=== PATIENT | male | born 1965 | race Caucasian/White ===

== ENCOUNTER 2022-08-23 08:07 | Outpatient (CLI) | payer BC, SELFPAY ==
--- NOTE | 2022-09-14 11:50 | WPDHOMESLEEP ---
Sleep Study - Home Unattended Date of Study: 08/23/22 Ordering Provider: Hayden Reynoso MD Interpreting Provider: Orly Delgado, DO Home Sleep Study Type: Apnea Link Air Height: 1.85 m Weight: 104.326 kg Body Mass Index: 30.3 Neck Circumference (inches): 16.25 [place]: 1 Reason for Sleep Study Snoring Sleep History The patient is a 56-year-old male with dermatitis, hypertension and use of chewing tobacco that had a sleep study ordered by his primary care for evaluation of sleep apnea. The patient denies awakening from sleep short of breath. He rarely awakens at night with heartburn, belching or cough. He occasionally snores and is occasionally loud enough that others complain. He denies having trouble sleeping when he has a cold. He denies waking up gasping for air throughout the night. He denies having breathing problems at night observed by himself or others. He denies sweating excessively at night. He denies having heart palpitations or irregular heartbeats during the night. He denies falling asleep during the day and while driving. He denies sleep paralysis, cataplexy and hypnagogic / hypnopompic hallucinations. He denies having trouble at school or work due to sleepiness. He denies feeling afraid of going to sleep. He rarely has nightmares. He frequently remembers his dreams. He rarely has thoughts racing through his mind. He denies feeling sad or depressed. He denies having anxiety. He denies having muscular tension. He rarely notices parts of his body jerk. He denies kicking during the night. He denies having crawling and aching feelings in his legs as well as leg pain during the night. He denies grinding his teeth during sleep and awakening with morning jaw pain. He is occasionally bothered by pain during the day and occasionally awakened by pain during the night. He rarely wakes up feeling stiff in the morning. He rarely wakes up with sore or achy muscles. He denies waking up with pain in the neck, spine and other joints. He goes to bed between 9-10 p.m. on weekdays and between 10:00 p.m. to midnight on the weekends. He is able to fall asleep shortly. He wakes up 1-2 times throughout the night to urinate. He wakes up between 6-630 a.m. on weekdays and between 7-8 a.m. on the weekends. He typically gets 8-9 hours of sleep per night. He does not stay in bed long after waking up in the morning. He currently lives with his and 3 children. He does not consume any caffeinated beverages within 2 hours of bedtime. He does not engage in physical exercise before bedtime. He will watch television before falling asleep. He denies taking naps in the afternoon or the evening. He drinks 2-3 caffeinated beverages per day. He drinks up to 2 alcoholic beverages per day. He denies tobacco and recreational drug use. [facility] Past Medical History Medical History Psoriasiform dermatitis Surgical History Surgical History H/O arthroscopy of right knee H/O vasectomy Family History Family History Father Hypertension Family history of elevated blood lipids Mother Hypertension Family history of elevated blood lipids Grandparent Carcinoma of colon Social History Social History Smoking status: Never smoker Smokeless tobacco user: chewing tobacco Alcohol intake: current Alcohol use details: on occasion Substance use: never Substance use type: does not use Lack of Transportation: No Lack of Food: Never True Current Housing: I Have Housing Concerned About Future Housing: No Difficulty Paying Gas/Electric Bills: No Difficulty Paying for Meds: No Currently Unemployed: No Education: Bachelor's Degree Difficulty w/ Childcare or Family Care: No Living
[2022-09-14 11:52] VITALS: BMI 30.3
== END 2022-08-26 12:53 | disposition home or self-care (01) ==
LOC: ANHCSM 08:11
PROVIDERS: PCP Family Medicine; Visit Provider Family Medicine
DX: G47.30 Sleep apnea, unspecified (principal)
CPT/HCPCS: 95806

== ENCOUNTER 2023-04-04 01:28 | Day surgery (SDC) | payer BC, SELFPAY ==
[2023-03-24 10:52] VITALS: BMI 29.8
--- NOTE | 2023-04-02 09:24 | PM.HPGS ---
History of Present Illness History of Present Illness Consent: Risks, benefits, and alternatives have been discussed and questions answered. Patient agrees to proceed with procedure. Chief complaint: neoplasm screening Narrative: Yamil Lopez is a 57 year old male who is referred for colon cancer screening. Review of Systems Review of Systems: All systems reviewed & are unremarkable except as noted in HPI and below PMFSH Past Medical History Medical History Psoriasiform dermatitis Surgical History Surgical History H/O arthroscopy of right knee H/O vasectomy Family History Family History Father Hypertension Family history of elevated blood lipids Mother Hypertension Family history of elevated blood lipids Grandparent Carcinoma of colon Social History Social History Smoking status: Never smoker Smokeless tobacco user: chewing tobacco Alcohol intake: current Drinks per week: 3 Alcohol use details: on occasion Substance use: never Substance use type: does not use Lack of Transportation: No Lack of Food: Never True Current Housing: I Have Housing Concerned About Future Housing: No Difficulty Paying Gas/Electric Bills: No Difficulty Paying for Meds: No Currently Unemployed: No Education: Bachelor's Degree Difficulty w/ Childcare or Family Care: No Living arrangements: with family Spiritual care concerns: No Meds Home Medications and Allergies Home Medications Medication Instructions Recorded Confirmed Type tadalafil 5 mg tablet (Cialis) 5 mg PO DAILY PRN sexual activity 02/11/22 03/24/23 Rx #30 tabs bupropion HCl 150 mg 24 hr tablet, 150 mg PO QAM #90 tabs 08/11/22 03/24/23 Rx extended release (Wellbutrin XL) lisinopril 10 1 tablet PO DAILY #90 tabs 08/11/22 03/24/23 Rx mg-hydrochlorothiazide 12.5 mg tablet AutoPAP #1 ea 12/22/22 01/13/23 Rx Nocturnal Oximetry #1 ea 01/27/23 01/27/23 Rx Allergies Allergy/AdvReac Type Severity Reaction Status Date / Time Penicillins Allergy Unknown Dyspnea / Verified 04/04/23 08:29 SOB Exam Resp: Auscultation: clear to auscultation bilaterally Cardio: Rate: regular rate Rhythm: regular rhythm GI: GI Palp: Yes Soft to palpation and No Tenderness to palpation present (GI) Assessment and Plan Assessment and plan (1) Colon cancer screening: Code(s): Z12.11 - Encounter for screening for malignant neoplasm of colon Status: Acute Assessment and Plan: Colonoscopy with possible biopsy or polypectomy or cautery or injection of substances.
[2023-04-04 08:29] VITALS: BP 125/78; PULSE 51; RESP 18; TEMP 36.3; O2SAT 99
[2023-04-04] MEDS: LACTATED RINGERS 1,000 ML 150 ML IV CONT (08:40)
--- NOTE | 2023-04-04 08:59 | WPDANESEPPF ---
Anes - Initial Pre Proc Eval Procedure: Operation Date: 04/04/23 10:00 Proposed Procedures p Screening Colonoscopy - Michael Barragan MD Date/Time: 04/04/23 08:59 Surgeon: Michael Barragan MD Pre Op Diagnosis: neoplasm screening Patient Data Age: 57 Gender: M Height: 1.85 m Weight: 102.3 kg Last Vital Signs Temp 97.3 F L 04/04/23 08:29 Pulse 51 L 04/04/23 08:29 Resp 18 04/04/23 08:29 BP 125/78 04/04/23 08:29 Pulse Ox 99 04/04/23 08:29 O2 Del Method Room Air 04/04/23 08:29 Allergies Allergy/AdvReac Type Severity Reaction Status Date / Time Penicillins Allergy Unknown Dyspnea / Verified 04/04/23 08:29 SOB Home Medications Medication Instructions Recorded Confirmed Type tadalafil 5 mg tablet (Cialis) 5 mg PO DAILY PRN sexual activity 02/11/22 03/24/23 Rx #30 tabs bupropion HCl 150 mg 24 hr tablet, 150 mg PO QAM #90 tabs 08/11/22 03/24/23 Rx extended release (Wellbutrin XL) lisinopril 10 1 tablet PO DAILY #90 tabs 08/11/22 03/24/23 Rx mg-hydrochlorothiazide 12.5 mg tablet AutoPAP #1 ea 12/22/22 01/13/23 Rx Nocturnal Oximetry #1 ea 01/27/23 01/27/23 Rx Patient hx anesthesia problems: none Family hx anesthesia problems: none Results Review: All pre-operative results and documents have been reviewed as part of the pre-operative evaluation. [facility] Past Medical History Medical History Psoriasiform dermatitis Surgical History Surgical History H/O arthroscopy of right knee H/O vasectomy Family History Family History Father Hypertension Family history of elevated blood lipids Mother Hypertension Family history of elevated blood lipids Grandparent Carcinoma of colon Social History Social History Smoking status: Never smoker Smokeless tobacco user: chewing tobacco Alcohol intake: current Drinks per week: 3 Alcohol use details: on occasion Substance use: never Substance use type: does not use Lack of Transportation: No Lack of Food: Never True Current Housing: I Have Housing Concerned About Future Housing: No Difficulty Paying Gas/Electric Bills: No Difficulty Paying for Meds: No Currently Unemployed: No Education: Bachelor's Degree Difficulty w/ Childcare or Family Care: No Living arrangements: with family Spiritual care concerns: No Anes - Eval Final PreProcedure Day of Procedure 04/04/23 08:59 Patient weight: obese Heart: regular rate and rhythm Lungs: clear to auscultation Airway: Mallampati scale class II Neurological: alert and oriented Last oral intake: >/= 8 hours ASA classification: III Emergent: no Anesthetic plan: proceed Anesthesia type and monitoring: general GIVS and standard monitoring Results Review: All pre-operative results and documents have been reviewed as part of the pre-operative evaluation. Informed Consent: The patient's anesthetic plan and its attendant risks and benefits were discussed with the patient/family/POA. Questions were solicited and answers provided to the satisfaction of the patient/family/POA.
[2023-04-04 09:45] VITALS: BP 102/66; PULSE 52; RESP 17; O2SAT 99
[2023-04-04 09:55] VITALS: BP 122/87; PULSE 48; RESP 18; O2SAT 99
[2023-04-04 10:05] VITALS: BP 126/88; PULSE 48; RESP 18; O2SAT 99
== END 2023-04-04 10:14 | disposition home or self-care (01) ==
PROVIDERS: PCP Family Medicine; Visit Provider Internal Medicine Gastroenterology
PROC: 0DJD8ZZ Inspection of Lower Intestinal Tract, Via Natural or Artificial Opening Endoscopic (ICD-10-PCS; CPT 45378; principal; 2023-04-04 10:00)
DX: Z12.11 Encounter for screening for malignant neoplasm of colon (principal); K64.8 Other hemorrhoids; K57.30 Diverticulosis of large intestine without perforation or abscess without bleeding; F17.220 Nicotine dependence, chewing tobacco, uncomplicated; E66.9 Obesity, unspecified; Z68.29 Body mass index [BMI] 29.0-29.9, adult
CPT/HCPCS: 45378; J2001; J2704; J7120

== ENCOUNTER 2023-07-01 13:36 | Outpatient (CLI) | payer BC, SELFPAY ==
--- NOTE | ~2023-07-01 | XR_ITS ---
XR chest 2V DATE: 07/01/2023 14:39 INDICATION: Obstructive sleep apnea TECHNIQUE: PA and lateral views COMPARISON: 06/21/2019 2 view chest FINDINGS: Normal heart size. Mild aortic unfolding. No hilar or mediastinal enlargement. No pulmonary infiltrate or consolidation, pleural effusion or pulmonary vascular congestion or pneumo thorax is detected. IMPRESSION: No active cardiopulmonary disease Reviewed, dictated and finalized at location B. [facility]
--- NOTE | 2023-07-01 15:03 | WPDPFTINT ---
PFT Procedure Performed PFT Procedure Performed Spirometry with Pre/Post Bronchodilator Plethysmography (Lung Vol) Diffusing Cap (DLCO) Flow Vol Loop PFT Interpretation Lung volumes were measured with the body plethysmography method. Lung volumes are unremarkable. Spirometry showed normal expiratory flow rates and a normal FEV1/FVC ratio of 73%. Following administration of a bronchodilator there was no significant increase in the expiratory flow rates. Lung diffusion capacity in within the normal range. The flow-volume loop is unremarkable. Impression: Spirometry, lung volumes, and lung diffusion capacity all within the normal range.
== END 2023-07-01 13:37 | disposition home or self-care (01) ==
LOC: ANHPFT 13:38
PROVIDERS: PCP Family Medicine; Visit Provider Physician Assistant
DX: G47.33 Obstructive sleep apnea (adult) (pediatric) (principal); R09.02 Hypoxemia
CPT/HCPCS: 71046; 94060; 94726; 94729

== ENCOUNTER 2023-08-11 08:45 | Outpatient (CLI) | payer BC, SELFPAY ==
--- NOTE | 2023-08-30 16:48 | WPDSLEEPSTUD ---
Sleep Study Date of Study: 08/11/23 Ordering Provider: Orly Delgado DO Interpreting Physician: Orly Delgado DO Sleep Study Type: CPAP Titration Height: 1.85 m Weight: 103.873 kg Body Mass Index: 30.2 Neck Circumference (inches): 16.25 [place]: 3 Reason for Sleep Study The patient had an Apnea Link home sleep test on 08/23/2022 that showed an overall AHI of 26 with desaturation down to 68%. His insurance company required failure of AutoPAP prior to covering a PAP Titration study. He had a nocturnal oximetry done 2 weeks after being on PAP therapy and it showed an LOUIS of 18 and he spent 3 min 14 sec with SpO2<88%. Basal SpO2 of 93% and SpO2 min of 83%. Sleep History The patient is a 57-year-old male with dermatitis, hypertension and use of chewing tobacco that had a sleep study ordered by his primary care for evaluation of sleep apnea.? The patient denies awakening from sleep short of breath.? He rarely awakens at night with heartburn, belching or cough.? He occasionally snores and is occasionally loud enough that others complain.? He denies having trouble sleeping when he has a cold.? He denies waking up gasping for air throughout the night.? He denies having breathing problems at night observed by himself or others.? He denies sweating excessively at night.? He denies having heart palpitations or irregular heartbeats during the night.? He denies falling asleep during the day and while driving.? He denies sleep paralysis, cataplexy and hypnagogic / hypnopompic hallucinations.? He denies having trouble at school or work due to sleepiness.? He denies feeling afraid of going to sleep.? He rarely has nightmares.? He frequently remembers his dreams.? He rarely has thoughts racing through his mind.? He denies feeling sad or depressed.? He denies having anxiety.? He denies having muscular tension.? He rarely notices parts of his body jerk.? He denies kicking during the night.? He denies having crawling and aching feelings in his legs as well as leg pain during the night.? He denies grinding his teeth during sleep and awakening with morning jaw pain.? He is occasionally bothered by pain during the day and occasionally awakened by pain during the night.? He rarely wakes up feeling stiff in the morning.? He rarely wakes up with sore or achy muscles.? He denies waking up with pain in the neck, spine and other joints.? He goes to bed between 9-10 p.m. on weekdays and between 10:00 p.m. to midnight on the weekends.? He is able to fall asleep shortly.? He wakes up 1-2 times throughout the night to urinate.? He wakes up between 6-630 a.m. on weekdays and between 7-8 a.m. on the weekends.? He typically gets 8-9 hours of sleep per night.? He does not stay in bed long after waking up in the morning.? He currently lives with his and 3 children.? He does not consume any caffeinated beverages within 2 hours of bedtime.? He does not engage in physical exercise before bedtime.? He will watch television before falling asleep.? He denies taking naps in the afternoon or the evening. He drinks 2-3 caffeinated beverages per day.? He drinks up to 2 alcoholic beverages per day.? He denies tobacco and recreational drug use. [facility] Past Medical History Medical History Psoriasiform dermatitis Surgical History Surgical History H/O arthroscopy of right knee H/O vasectomy Family History Family History Father Hypertension Family history of elevated blood lipids Mother Hypertension Family history of elevated blood lipids Grandparent Carcinoma of colon Social History Social History Smoking status: Never smoker Smokeless tobacco user: chewing tobacco Alcohol intake: current Drinks per week: 3 Alcohol use details: on occasion
[2023-08-30 16:55] VITALS: BMI 30.2
== END 2023-08-12 07:31 | disposition home or self-care (01) ==
LOC: ANHCSM 08:46
PROVIDERS: PCP Family Medicine; Visit Provider Family Medicine
DX: G47.33 Obstructive sleep apnea (adult) (pediatric) (principal)
CPT/HCPCS: 95811

== ENCOUNTER 2024-04-12 01:28 | Day surgery (SDC) | payer BC, SELFPAY ==
[2024-03-22 13:45] VITALS: BMI 31.4
[2024-04-12] MEDS: LACTATED RINGERS 1,000 ML 150 ML IV CONT (07:56)
[2024-04-12 07:59] VITALS: BP 160/97; PULSE 60; RESP 18; TEMP 36.2; O2SAT 98; BMI 31.7
--- NOTE | 2024-04-12 08:03 | WPDANESEPPF ---
Anes - Initial Pre Proc Eval Procedure: Operation Date: 04/12/24 09:00 Proposed Procedures p Esophagogastroduodenoscopy - George Peraza MD Date/Time: 04/12/24 08:03 Surgeon: George Peraza MD Pre Op Diagnosis: esophageal obstruction Patient Data Age: 58 Gender: M Height: 1.85 m Weight: 109.2 kg Last Vital Signs Temp 36.2 C L 04/12/24 07:59 Pulse 60 04/12/24 07:59 Resp 18 04/12/24 07:59 BP 160/97 H 04/12/24 07:59 Pulse Ox 98 04/12/24 07:59 O2 Del Method Room Air 04/12/24 07:59 Allergies Allergy/AdvReac Type Severity Reaction Status Date / Time Penicillins Allergy Unknown Dyspnea / Verified 04/12/24 07:58 SOB Home Medications Medication Instructions Recorded Confirmed Type Nocturnal Oximetry #1 ea 01/27/23 01/25/24 Rx tadalafil 5 mg tablet (Cialis) 5 mg PO DAILY PRN sexual activity 06/15/23 03/22/24 Rx #30 tabs CPAP Pressure Change #1 ea 08/30/23 01/25/24 Rx lisinopril 10 1 tablet PO DAILY #90 tabs 01/02/24 03/22/24 Rx mg-hydrochlorothiazide 12.5 mg tablet aspirin 81 mg tablet,delayed 81 mg PO DAILY 01/25/24 03/22/24 History release (Adult Aspirin Regimen) cetirizine 10 mg capsule (Zyrtec) 10 mg PO DAILY PRN Allergy Symptoms 01/25/24 03/22/24 History famotidine 10 mg tablet 10 mg PO DAILY 01/25/24 03/22/24 History glucosamine sulfate 500 mg tablet 500 mg PO DAILY 01/25/24 03/22/24 History (Glucosamine) bupropion HCl 300 mg 24 hr tablet, 300 mg PO QAM #90 tabs 03/29/24 Rx extended release (Wellbutrin XL) Patient hx anesthesia problems: none Family hx anesthesia problems: none Results Review: All pre-operative results and documents have been reviewed as part of the pre-operative evaluation. [facility] Past Medical History Medical History (Updated 04/12/24 @ 08:03 by Yuniel Akers MD) Basal cell carcinoma (BCC) Essential (primary) hypertension JOSE (obstructive sleep apnea) Psoriasiform dermatitis Surgical History Surgical History H/O arthroscopy of right knee H/O vasectomy Family History Family History Father Hypertension Family history of elevated blood lipids Malignant neoplasm of prostate Mother Hypertension Family history of elevated blood lipids Grandparent Carcinoma of colon Social History Social History Smoking status: Never smoker Smokeless tobacco user: chewing tobacco Additional smoking assessment comments: hx of chewing tobacco (not currently) Alcohol intake: current Drinks per week: 3 Alcohol use details: on occasion Substance use: never Substance use type: does not use Lack of Transportation: No Lack of Food: Never True Current Housing: I Have Housing Concerned About Future Housing: No Difficulty Paying Gas/Electric Bills: No Difficulty Paying for Meds: No Currently Unemployed: No Education: Bachelor's Degree Difficulty w/ Childcare or Family Care: No Living arrangements: with family Spiritual care concerns: No Anes - Eval Final PreProcedure Day of Procedure 04/12/24 08:03 Patient weight: obese Heart: regular rate and rhythm Lungs: clear to auscultation Airway: Mallampati scale class II Neurological: alert and oriented Last oral intake: >/= 8 hours ASA classification: III Emergent: no Anesthetic plan: proceed Anesthesia type and monitoring: general GIVS and standard monitoring Results Review: All pre-operative results and documents have been reviewed as part of the pre-operative evaluation. Informed Consent: The patient's anesthetic plan and its attendant risks and benefits were discussed with the patient/family/POA. Questions were solicited and answers provided to the satisfaction of the patient/family/POA.
--- NOTE | 2024-04-12 08:59 | PM.HPGS ---
History of Present Illness History of Present Illness Consent: Risks, benefits, and alternatives have been discussed and questions answered. Patient agrees to proceed with procedure. Chief complaint: esophageal obstruction Narrative: Yamil Lopez is a 58 year old male here for first egd, gerd on famotidine, also sensation of gas in upper abdomen that can not get out Review of Systems Review of Systems: All systems reviewed & are unremarkable except as noted in HPI and below PMFSH Past Medical History Medical History (Updated 04/12/24 @ 09:03 by George Peraza MD) Basal cell carcinoma (BCC) Essential (primary) hypertension Gas bloat syndrome JOSE (obstructive sleep apnea) Psoriasiform dermatitis Surgical History Surgical History H/O arthroscopy of right knee H/O vasectomy Family History Family History Father Hypertension Family history of elevated blood lipids Malignant neoplasm of prostate Mother Hypertension Family history of elevated blood lipids Grandparent Carcinoma of colon Social History Social History Smoking status: Never smoker Smokeless tobacco user: chewing tobacco Additional smoking assessment comments: hx of chewing tobacco (not currently) Alcohol intake: current Drinks per week: 3 Alcohol use details: on occasion Substance use: never Substance use type: does not use Lack of Transportation: No Lack of Food: Never True Current Housing: I Have Housing Concerned About Future Housing: No Difficulty Paying Gas/Electric Bills: No Difficulty Paying for Meds: No Currently Unemployed: No Education: Bachelor's Degree Difficulty w/ Childcare or Family Care: No Living arrangements: with family Spiritual care concerns: No Meds Home Medications and Allergies Home Medications Medication Instructions Recorded Confirmed Type Nocturnal Oximetry #1 ea 01/27/23 01/25/24 Rx tadalafil 5 mg tablet (Cialis) 5 mg PO DAILY PRN sexual activity 06/15/23 03/22/24 Rx #30 tabs CPAP Pressure Change #1 ea 08/30/23 01/25/24 Rx lisinopril 10 1 tablet PO DAILY #90 tabs 01/02/24 03/22/24 Rx mg-hydrochlorothiazide 12.5 mg tablet aspirin 81 mg tablet,delayed 81 mg PO DAILY 01/25/24 03/22/24 History release (Adult Aspirin Regimen) cetirizine 10 mg capsule (Zyrtec) 10 mg PO DAILY PRN Allergy Symptoms 01/25/24 03/22/24 History famotidine 10 mg tablet 10 mg PO DAILY 01/25/24 03/22/24 History glucosamine sulfate 500 mg tablet 500 mg PO DAILY 01/25/24 03/22/24 History (Glucosamine) bupropion HCl 300 mg 24 hr tablet, 300 mg PO QAM #90 tabs 03/29/24 Rx extended release (Wellbutrin XL) Allergies Allergy/AdvReac Type Severity Reaction Status Date / Time Penicillins Allergy Unknown Dyspnea / Verified 04/12/24 07:58 SOB Vital Signs Vital Signs - 24 hr 04/12/24 07:59 Temperature 97.2 F L Pulse Rate 60 Respiratory Rate 18 Blood Pressure 160/97 H Pulse Oximetry 98 Oxygen Delivery Room Air Exam Const: General: comfortable and no acute distress HENMT: Face/Nose/Sinus: Normal nares present Eyes: General: appearance normal, both eyes and all related structures Neck: Neck: no JVD Resp: Auscultation: clear to auscultation bilaterally Cardio: Rate: regular rate Rhythm: regular rhythm GI: Inspection: non-distended GI Palp: Yes Soft to palpation Skin: General skin exam: normal color Neuro: General: gait normal Speech: normal speech Extrem: General: normal to inspection Psych: Mental Status: mental status grossly normal Assessment and Plan Assessment and plan (1) Gas bloat syndrome: Code(s): K92.89 - Other specified diseases of the digestive system Status: Acute Assessment and Plan: egd with bx
[2024-04-12 09:24] VITALS: BP 128/93; PULSE 67; RESP 22; O2SAT 97
[2024-04-12 09:34] VITALS: BP 131/91; PULSE 56; RESP 17; O2SAT 100
[2024-04-12 09:44] VITALS: BP 141/90; PULSE 52; RESP 17; O2SAT 100
== END 2024-04-12 09:54 | disposition home or self-care (01) ==
PROVIDERS: PCP Family Medicine; Referring Provider Family Medicine; Visit Provider Internal Medicine Gastroenterology
PROC: 0DJ08ZZ Inspection of Upper Intestinal Tract, Via Natural or Artificial Opening Endoscopic (ICD-10-PCS; CPT 43235; principal; 2024-04-12 09:00)
DX: K22.2 Esophageal obstruction (principal); K21.00 Gastro-esophageal reflux disease with esophagitis, without bleeding; K44.9 Diaphragmatic hernia without obstruction or gangrene; K92.89 Other specified diseases of the digestive system; I10 Essential (primary) hypertension; G47.33 Obstructive sleep apnea (adult) (pediatric); E66.9 Obesity, unspecified; Z68.31 Body mass index [BMI] 31.0-31.9, adult; Z79.82 Long term (current) use of aspirin; Z99.89 Dependence on other enabling machines and devices; Z98.890 Other specified postprocedural states; Z87.891 Personal history of nicotine dependence; Z85.828 Personal history of other malignant neoplasm of skin; Z80.42 Family history of malignant neoplasm of prostate; Z80.0 Family history of malignant neoplasm of digestive organs
CPT/HCPCS: 43239; 43249; 88305; C1726; J2003; J2704; J7120

== ENCOUNTER 2024-05-04 15:26 | Outpatient (CLI) | payer BC, SELFPAY ==
[2024-05-04 18:29] LABS: Alanine Aminotransferase 16 U/L (6-50); Albumin Level 4.4 g/dL (3.5-5.1); Alkaline Phosphatase 105 U/L (38-126); Anion Gap 6 mmol/L (4-12); Aspartate Amino Transferase 40 U/L (17-59); Bilirubin,Total 0.5 mg/dL (0.2-1.3); Blood Urea Nitrogen 11 mg/dL (9-20); Calcium 9.3 mg/dL (8.4-10.2); Carbon Dioxide 32 mmol/L (22-30); Chloride 99 mmol/L (98-107); Estimated Glomerular Filt Rate > 60; Glucose 87 mg/dL (65-110); Potassium 4.1 mmol/L (3.4-5.0); Sodium 137 mmol/L (137-145)
[2024-05-04 18:37] LABS: NT Pro B Type Natriuretic Pept 85 pg/mL (19.9-100)
== END 2024-05-04 15:27 | disposition home or self-care (01) ==
LOC: ANHGOSHLAB 15:28
PROVIDERS: PCP Family Medicine; Visit Provider Nurse Practitioner Family
DX: R60.9 Edema, unspecified (principal)
CPT/HCPCS: 36415; 80053; 83880

== ENCOUNTER 2024-06-11 07:45 | Outpatient (CLI) | payer BC, SELFPAY ==
--- NOTE | 2024-06-11 07:48 | ECHO_ITS ---
Patient Info Name: Yamil Lopez Age: 58 years : 1965 Gender: Male Ht: 73 in Wt: 235 lbs BSA: 2.37 m2 HR: 68 bpm BP: 158 / 102 mmHg Technical Quality: Good Exam Date: 06/11/2024 8:01 AM Exam Location: Echo Lab Patient Status: Outpatient Admit Date: 06/11/2024 Staff Ordering Physician: Dyan Beck Shactor: Smita Hernandez RDCS Attending Provider: Dyan Beck Referring Physician: Kiran SMITH; Exam Type: CA echo doppler color flow Study Info Indications R60.9 - Edema, unspecified Complete two-dimensional, color flow and Doppler transthoracic echocardiogram is performed. Strain analysis performed. Summary 1. Complete two-dimensional, color flow and Doppler transthoracic echocardiogram is performed. 2. Left ventricular chamber dimension is normal. 3. Left ventricular systolic function is normal, estimated at 65-70%. 4. The left ventricular diastolic function is grade I diastolic dysfunction. 5. E/e' 7 is not elevated. 6. Global longitudinal strain is normal at -20.0%. 7. Left atrial chamber dimension is moderately enlarged. 8. Right atrial chamber dimension is moderately enlarged. 9. There is mild aortic valve sclerosis. 10. Mild pulmonary hypertension, estimated pulmonary arterial systolic pressure is 43 mmHg. Left Ventricle E/e' 7 is not elevated. Global longitudinal strain is normal at -20.0%. Left ventricular chamber dimension is normal. Left ventricular systolic function is normal, estimated at 65-70%. The left ventricular diastolic function is grade I diastolic dysfunction. Right Ventricle Right ventricular chamber dimension is normal. Right ventricular systolic function is normal. Left Atria Left atrial chamber dimension is moderately enlarged. Right Atria Right atrial chamber dimension is moderately enlarged. Aortic Valve The aortic valve is trileaflet. There is mild aortic valve sclerosis. There is no aortic valve stenosis. There is no aortic valve regurgitation. Pulmonic Valve There is no pulmonic regurgitation. Mitral Valve There is no mitral valve stenosis. There is no mitral valve regurgitation. Tricuspid Valve There is no tricuspid valve regurgitation. Mild pulmonary hypertension, estimated pulmonary arterial systolic pressure is 43 mmHg. Pericardium/Pleural There is no pericardial effusion. Inferior Vena Cava Normal inferior vena cava with >50% collapse upon inspiration consistent with normal right atrial pressure, 5 mmHg. Aorta The aortic root size at the sinus of Valsalva is normal. Left Ventricular Outflow Tract Name Value Normal LVOT 2D LVOT Diameter 2.0 cm LVOT Doppler LVOT Peak Gradient 6 mmHg LVOT Mean Gradient 3 mmHg LVOT VTI 27 cm LVOT VTI/AV VTI Ratio 1.0 LVOT Stroke Volume 86 ml LVOT CO 5.6 l/min LVOT CI 2.4 l/min/m2 Pulmonic Valve Name Value Normal RVOT Doppler RVOT Peak Gradient 2 mmHg PV Doppler PV Peak Gradient 3 mmHg Mitral Valve Name Value Normal MV Doppler MV Decel Trimble 456 cm/s2 MV PHT 55 ms MV Area (PHT) 4.0 cm2 4.0-5.0 MV Diastolic Function MV E Peak Velocity 87 cm/s MV A Peak Velocity 103 cm/s MV E/A 0.8 MV Decel Time 191 ms Tricuspid Valve Name Value Normal TV Regurgitation Doppler TR Peak Velocity 310 cm/s TR Peak Gradient 38 mmHg Estimated PAP/RSVP RA Pressure 5 mmHg <=5 PA Systolic Pressure 43 mmHg <36 RV Systolic Pressure 43 mmHg <36 Aorta Name Value Normal Ascending Aorta Ao Root Diameter (MM) 4.0 cm Ao Root Diam Index (MM) 1.7 cm/m2 Aortic Valve Name Value Normal AV Doppler AV Peak Velocity 138 cm/s AV Peak Gradient 8 mmHg AV Mean Gradient 5 mmHg AV VTI 28 cm AV Area (Cont Eq VTI) 3.1 cm2 >=3.0 AV Area (Cont Eq Sonny) 2.9 cm2 AV Regurgitation 2D LVOT Area 3.2 cm2 Ventricles Name Value Normal LV Dimensions 2D/MM IVS Diastolic Thickness (2D) 0.9 cm 0.6-1.0 IVS Diastole Thickness (MM) 0.7 cm 0.6-1.0 LVID Diastole (2D) 4.6 cm 4.2-5.8 LVID Diastole (MM) 6.8 cm 4.2-5.8 LVIW Diastolic Thickness (2D) 0.8 cm 0.6-1.0 LVIW Diastolic Thickness (MM) 0.8 cm 0.6-1.0 LVID Systole (2D) 3.0 cm 2.5-4.0 LVID Systole (MM) 4.4 cm 2.5-4.0 LVOT Diameter 2.0 cm LV Mass (2D Cubed) 132.93 g 88.00-224.00 LV Mass Index (2D Cubed) 56 g/m2 49-115 Relative Wall Thickness (2D) 0.37 LV Mass (MM Cubed) 210.63 g 88.00-224.00 LV Mass Index (MM Cubed) 89 g/m2 49-115 Relative Wall Thickness (MM) 0.22 LV Fractional Shortening/Ejection Fraction 2D/MM LV Fractional Shortening (2D) 35 % 25-43 LV Fractional Shortening (MM) 35 % 25-43 LV EF (MM Teicholz) 63 % 52-72 LV EF (2D Teicholz) 64 % 52-72 LV Diastolic Volume (4C MOD) 147 ml LV EF (4C MOD) 63 % LV Diastolic Volume (2C MOD) 141 ml LV EF (2C MOD) 68 % LV Diastolic Volume (BP MOD) 144 ml 62-150 LV Diastolic Volume Index (BP MOD) 61 ml/m2 34-74 LV Systolic Volume (BP MOD) 51 ml 21-61 LV Systolic Volume Index (BP MOD) 21 ml/m2 11-31 LV EF (BP MOD) 65 % 52-72 LV Diastolic Length (4C) 9.1 cm LV Systolic Length (4C) 7.3 cm LV Stroke Volume (4C MOD) 92 ml Atria Name Value Normal LA Dimensions LA Dimension (MM) 4.3 cm 3.0-4.1 LA Volume (4C A-L) 84 ml LA Volume (BP A-L) 98 ml RA Dimensions RA Area (4C) 21.2 cm2 <=18.0 EchoPAC Name Value Normal AutoEF LVCO_BiP_Q (Relm2OXD) 6.3 l/min LVEF_BiP_Q (Trje5ZLA) 66 % LVSV_BiP_Q (Ajks0VES) 122 ml LVVED_BiP_Q (Haun7EYR) 185 ml LVVES_BiP_Q (Jmey3QKP) 62 ml HR_4Ch_Q (Lwjg1ZEG) 55 bpm LVCO_4Ch_Q (Xcyx2ZTE) 6.4 l/min LVEF_4Ch_Q (Ehgg9NTZ) 68 % LVLd_4Ch_Q (Qngr6CDR) 9.2 cm LVLs_4Ch_Q (Pfmw0UGV) 7.3 cm LVSV_4Ch_Q (Cesl4VPK) 116 ml LVVED_4Ch_Q (Umsb8ZNJ) 172 ml LVVES_4Ch_Q (Eujr4EEL) 56 ml HR_2Ch_Q (Sgxo9NQS) 49 bpm LVCO_2Ch_Q (Ehvc1ECV) 6.3 l/min LVEF_2Ch_Q (Kskh4RAG) 65 % LVLd_2Ch_Q (Xodm1DPL) 8.7 cm LVLs_2Ch_Q (Mjmr9GKI) 7.1 cm LVSV_2Ch_Q (Gntn3EPH) 128 ml LVVED_2Ch_Q (Gisc0PYL) 196 ml LVVES_2Ch_Q (Ydhf0EYX) 69 ml ANJEL AA peak sys SL (AWMA) 17.0 % AAS peak sys SL (AWMA) 29.3 % AI peak sys SL (AWMA) 22.0 % AL peak sys SL (AWMA) 27.8 % AP peak sys SL (AWMA) 28.3 % peak sys SL (AWMA) 28.6 % AVC (AWMA) 395 ms BA peak sys SL (AWMA) 18.7 % BAS peak sys SL (AWMA) 15.8 % BI peak sys SL (AWMA) 15.0 % BL peak sys SL (AWMA) 26.3 % BP peak sys SL (AWMA) 10.1 % BS peak sys SL (AWMA) 12.4 % G peak SL(A2C) (AWMA) 18.3 % G peak SL(A4C) (AWMA) 23.1 % G peak SL(APLAX) (AWMA) 18.7 % G peak SL(Avg) (AWMA) 20.1 % MA peak sys SL (AWMA) 13.0 % MAS peak sys SL (AWMA) 21.2 % HI peak sys SL (AWMA) 27.2 % ML peak sys SL (AWMA) 24.0 % MP peak sys SL (AWMA) 12.2 % MS peak sys SL (AWMA) 22.0 % Report Signatures
--- OUTSIDE RECORDS SUMMARY | 2024-06-16 21:49 | XMS_ITS | Clinical Summary ---
Author Organization [facility] Address [address] [place] [address]. [place], [place] [address] [place] [address] Care Team Providers Care Money Market Clerk Name Role Phone Unavailable Primary Care Provider Unavailabl e Social History Tobacco Use Types Packs/Day Years Used Date Smoking Tobacco: Never Sex and Gender Information Value Date Recorded Sex Assigned at Not on file Legal Sex Male 9:46 PM CDT Gender Identity Not on file Sexual Orientation Not on file Last Filed Vital Signs Vital Sign Reading Time Taken Comments Blood Pressure 112/70 01/27/2012 1:07 PM CDT Pulse 57 01/27/2012 1:06 PM CDT Temperature - - Respiratory Rate 16 01/27/2012 1:06 PM CDT Oxygen Saturation - - Inhaled Oxygen Concentration - - Weight 98.6 kg (217 lb 6.4 oz) 01/27/2012 1:06 P M CDT Height 185.4 cm (6' 1 ) 01/27/2012 1:06 PM CDT Body Mass Index 28.68 01/27/2012 1:06 PM CDT Plan of Treatment Health Maintenance Due Date Last Done Comments Colorectal Cancer Screening Colonoscopy (10 Years) 1965 Annual Physical 1969 Hepatitis C 1984 DTaP, Tdap and Td Vaccines ( 1 - Tdap) 1985 Hepatitis B Vaccines (1 of 3 - 19+ 3-dose series) 1985 Zoster Vaccines (1 of 2) 2016 COVID-19 Vaccine (2023-2 5 season) 2024 Influenza Adult (#1) 2024 Meningococcal Vaccine Aged Out No boom jolene eligible based on patient's age to complete this topic Pneumococcal Vaccine: Pediat rics (0 to 5 Years) and At-Risk Patients (6 to 64 Years) Aged Out No longer eligible b ased on patient's age to complete this topic RSV Immunizations Under 20 Months Aged Out No longer eligible based on patient's age to complete this topic
--- OUTSIDE RECORDS SUMMARY | 2024-06-16 21:49 | XMS_ITS | Encounter Summary ---
Author Organization [facility] Address [address] [place] [address]. [place] [address] [place] [address] Care Team Providers Care Curtain Supervisor Name Role Phone Unavailable Primary Care Provider Unavailabl e Encounter Details Date Type Department Care Team (Late st Contact Info) Description 01/27/2012 [facility] [address] [place] [address] , Saria Guerra MD Social History Tobacco Use Types Packs/Day Years Used Date Smoking Tobacco: Never Sex and Gender Information Value Date Recorded Sex Assigned at Not on file Legal Sex Male 9:46 PM CDT Gender Identity Not on file Sexual Orientation Not on file documented as of this encounter Plan of Treatment Not on file documented as of this encounter Visit Diagnoses Not on filedocumented in this encounter
--- OUTSIDE RECORDS SUMMARY | 2024-06-16 21:49 | XMS_ITS | Encounter Summary ---
Author Organization [facility] Address [address] [place] [address]. [place] [address] [place] [address] Care Team Providers Care Hospice/Home Health Aide Name Role Phone Unavailable Primary Care Provider Unavailabl e Encounter Details Date Type Department Care Team (Late st Contact Info) Description 03/09/2012 [facility] [address] [place] [address] , Saira Guerra MD Social History Tobacco Use Types [...]
--- OUTSIDE RECORDS SUMMARY | 2024-06-16 21:49 | XMS_ITS | Encounter Summary ---
Author Organization [facility] Address [facility] [place] [address] [place] [address] Care Team Providers Care Seeing Eye Dog Trainer Name Role Phone Unavailable Primary Care Provider Unavailabl e Reason for Visit * Reason Onset Date Comments Information 04/27/2017 Care Declined -- Pt. will call office if appointment desired Encounter Details Date Type Department Care Team (Late st Contact Info) Description 04/27/2017 Telephone [facility] [address] [place] [address] Narayan Gonzáles MD [address] [place] [address] Information (Care Declined -- Pt. will call office if appointment desired) Social History Tobacco Use Types Packs/Day Years Used Date Smoking Tobacco: Never Sex and Gender Information Value Date Recorded Sex Assigned at Not on file Legal Sex Male 9:46 PM CDT Gender Identity Not on file Sexual Orientation Not on file documented as of this encounter Progress Notes * Jannet Metz - 04/27/2017 3:05 PM CDT Yamil called. He has received several letters from [facility]. He was last seen in 2011. He stated he did not wish to be seen at this time. If he requires future cardiology care or testing, he will call our office. documented in this encounter Plan of Treatment Not on file documented as of this encounter Visit Diagnoses Not on filedocumented in this encounter
--- OUTSIDE RECORDS SUMMARY | 2024-06-16 21:49 | XMS_ITS | Encounter Summary ---
Author Organization [facility] Address [facility] [place] [address] [place] [address] Care Team Providers Care Welder Production Line Combination Name Role Phone Unavailable Primary Care Provider Unavailabl e Encounter Details Date Type Department Care Team (Late st Contact Info) Description 01/27/2012 [facility] AT [address] [place] [address] , Saira Guerra MD Social History Tobacco Use Types Packs/Day Years Used Date Smoking Tobacco: Never Sex and Gender Information Value Date Recorded Sex Assigned at Not on file Legal Sex Male 9:46 PM CDT Gender Identity Not on file Sexual Orientation Not on file documented as of this encounter Last Filed Vital Signs Vital Sign Reading [...] Mass Index 28.68 01/27/2012 1:06 PM CDT documented in this encounter Plan of Treatment Not on file documented as of this encounter Visit Diagnoses Not on filedocumented in this encounter
== END 2024-06-11 07:46 | disposition home or self-care (01) ==
LOC: ANHCARD 07:47
PROVIDERS: PCP Family Medicine; Visit Provider Nurse Practitioner Family
DX: R60.9 Edema, unspecified (principal); I10 Essential (primary) hypertension; I27.20 Pulmonary hypertension, unspecified
CPT/HCPCS: 93306

== ENCOUNTER 2024-08-10 12:46 | Outpatient (CLI) | payer BC, SELFPAY ==
--- OUTSIDE RECORDS SUMMARY | 2024-08-10 12:49 | XMS_ITS | Clinical Summary ---
Author Organization [facility] Address [address] [place] [address] Care Team Providers Care Rubber Goods Inspector Name Role Phone Unavailable Primary Care Provider [...] season) 2024 Influenza Adult (#1) 2024 Meningococcal B Vaccine Aged Out No l onger eligible based on patient's age to complete this topic Meningococcal Vaccine Aged Out No boom jolene [...]
== END 2024-08-10 12:47 | disposition home or self-care (01) ==
LOC: ANHAUDIO 12:46
PROVIDERS: PCP Family Medicine; Visit Provider Family Medicine
DX: H90.3 Sensorineural hearing loss, bilateral (principal)
CPT/HCPCS: 92557; 92567

== ENCOUNTER 2024-09-08 07:45 | Emergency (ER) | payer BC, SELFPAY ==
[2024-09-08 07:46] VITALS: BP 122/64; PULSE 58; RESP 20; TEMP 36.4; O2SAT 100
--- OUTSIDE RECORDS SUMMARY | 2024-09-08 07:47 | XMS_ITS | Clinical Summary ---
Author Organization [facility] Address [address] [place] [address] Care Team Providers Care High School Math Tutor Name Role Phone Unavailable Primary Care Provider [...]
--- OUTSIDE RECORDS SUMMARY | 2024-09-08 08:43 | XMS_ITS | Clinical Summary ---
Author Organization [facility] Address [address] [place] [address] Care Team Providers Care Publications Editor Name Role Phone Unavailable Primary Care Provider [...]
--- NOTE | 2024-09-08 08:46 | PC.NURSE ---
Patient states he called his eye doctor and is able to go see him
== END 2024-09-08 09:03 | disposition left against medical advice (07) ==
PROVIDERS: PCP Family Medicine
DX: T15.92XA Foreign body on external eye, part unspecified, left eye, initial encounter (principal)
CPT/HCPCS: 99199

== ENCOUNTER 2025-02-27 09:00 | Outpatient (CLI) | payer BC, SELFPAY ==
--- NOTE | 2025-02-27 09:13 | ECG_ITS ---
Test Date: 2025-02-27 09:31:36 Measurements Intervals [place] Rate: 55 P: -1 DC: 138 QRS: 2 QRSD: 93 T: 22 QT: 412 QTc: 395 Interpretive Statements SINUS BRADYCARDIA OTHERWISE NORMAL ECG No previous ECG available for comparison Electronically Signed On 02-27-2025 11:16:01 CDT by Jim Medina M.D.
--- OUTSIDE RECORDS SUMMARY | 2025-02-27 09:27 | XMS_ITS | Clinical Summary ---
Author Organization [facility] Address [address] [place] [address] Care Team Providers Care Steam Oven Operator Name Role Phone Unavailable Primary Care Provider [...] P M CDT Height 185.4 cm (6' 1) 01/27/2012 1:06 PM CDT Body Mass Index 28.68 01/27/2012 1:06 PM CDT Plan of Treatment Health Maintenance Due Date Last Done Comments Colorectal Cancer Screening Colonoscopy (10 Years) 1965 Annual Physical 1969 Hepatitis C 1984 DTaP, Tdap and Td Vaccines ( 1 - Tdap) 1985 Hepatitis B Vaccines (1 of 3 - 19+ 3-dose series) 1985 Pneumococcal Vaccine: 50+ Ye ars (1 of 1 - PCV) 2016 Zoster Vaccines (1 of 2) 2016 COVID-19 Vaccine ( - 2023-2 5 season) 2024 Meningococcal B Vaccine Aged Out No l onger eligible based on patient's age to complete this topic Meningococcal Vaccine Aged Out No boom jolene eligible based on patient's age to complete this topic RSV Immunizations Under 20 Months Aged Out No longer eligible based on patient's age to complete this topic
[2025-02-27 09:31] LABS: Hematocrit 31.8 % (42.0-52.0); Hemoglobin 10.6 g/dL (14.0-18.0)
[2025-02-27 09:56] LABS: Albumin Level 4.1 g/dL (3.5-5.1); Estimated Glomerular Filt Rate 48; Glucose 102 mg/dL (65-110)
== END 2025-02-27 09:01 | disposition home or self-care (01) ==
LOC: ANHLAB 09:01
PROVIDERS: PCP Family Medicine; Visit Provider Orthopaedic Surgery
DX: E78.2 Mixed hyperlipidemia (principal); R09.02 Hypoxemia; F17.228 Nicotine dependence, chewing tobacco, with other nicotine-induced disorders; I10 Essential (primary) hypertension
CPT/HCPCS: 80307; 82040; 82565; 82947; 85014; 85018; 93005

== ENCOUNTER 2025-03-07 07:34 | Outpatient (CLI) | payer BC, SELFPAY ==
[2025-03-07 09:28] LABS: Anion Gap 8 mmol/L (4-12); Blood Urea Nitrogen 14 mg/dL (9-20); Calcium 9.1 mg/dL (8.4-10.2); Carbon Dioxide 28 mmol/L (22-30); Chloride 101 mmol/L (98-107); Estimated Glomerular Filt Rate > 60; Glucose 95 mg/dL (65-110); Potassium 4.4 mmol/L (3.4-5.0); Sodium 137 mmol/L (137-145)
== END 2025-03-07 07:35 | disposition home or self-care (01) ==
LOC: ANHLAB 07:36
PROVIDERS: PCP Family Medicine; Visit Provider Family Medicine
DX: R80.9 Proteinuria, unspecified (principal); N18.9 Chronic kidney disease, unspecified
CPT/HCPCS: 36415; 80048

== ENCOUNTER 2025-04-24 11:40 | Outpatient (CLI) | payer BC, SELFPAY ==
--- NOTE | 2025-04-24 | CONSULT_PTH ---
PATIENT: Yamil Lopez LOC: ANURGERY U#:[id number] AGE/SX: 59/M ROOM: RE04/24/[address]: Ned Watson MD : 1965 BED: DIS: 04/24/2025 SPEC #: [id number] RECD: 04/24/25 13:40 STATUS: HEATHER REQ #: [id number] VIANEY: 04/24/25 00:[address]: Ned Watson DEPT: [facility] Consult RECD BY: Lissa Ritter MLT, ([facility]) ENTERED: 04/24/25 13:41 SP TYPE: Consult OTHR DR: Sarah Reynoso MD Tissues: A - Peripheral Smear Procedures: Hematology Consult
[2025-04-24 13:16] LABS: Hematocrit 31.6 % (42.0-52.0); Hemoglobin 10.4 g/dL (14.0-18.0); Immature Granulocyte Percent A 0.5 % (0-0.5); Lymphocytes Absolute Auto 1.64 K/mm3 (0.9-3.2); Mean Corpuscular HGB Conc 32.9 g/dl (32-36); Mean Corpuscular Hemoglobin 33.2 pg (26-34); Mean Corpuscular Volume 101.0 fl (80-100); Nucleated Red Blood Cells Absolute Auto 0.000 K/mm3 (0.0-0.012); Nucleated Red Blood Cells Perc 0.0 % (0.0-0.2); Platelet Count Result 284 k/mm3 (150-375); Red Blood Count 3.13 M/mm3 (4.6-6.20); White Blood Count 8.6 K/mm3 (4.5-10.0)
--- OUTSIDE RECORDS SUMMARY | 2025-04-24 13:16 | XMS_ITS | Clinical Summary ---
Author Organization [facility] Address [address] [place] [address] Care Team Providers Care Custodian Blood Bank Name Role Phone Unavailable Primary Care Provider [...] of 2) 2016 COVID-19 Vaccine ( - 2024-2 6 season) 2025 Influenza Adult (#1) 2025 Hepatitis A Vaccines Aged Out No long er eligible based on patient's age to complete this topic Meningococcal B Vaccine Aged Out No l onger eligible based on patient's age to complete this topic Meningococcal Vaccine Aged Out No boom jolene eligible based on patient's age to complete this topic RSV Immunizations Under 20 Months Aged Out No longer eligible based on patient's age to complete this topic
[2025-04-24 13:31] LABS: Albumin Level 4.5 g/dL (3.5-5.1)
[2025-04-24 13:35] LABS: Anion Gap 9 mmol/L (4-12); Blood Urea Nitrogen 16 mg/dL (9-20); Calcium 9.2 mg/dL (8.4-10.2); Carbon Dioxide 27 mmol/L (22-30); Chloride 102 mmol/L (98-107); Estimated Glomerular Filt Rate > 60; Glucose 89 mg/dL (65-110); Potassium 4.4 mmol/L (3.4-5.0); Sodium 138 mmol/L (137-145)
[2025-04-24 14:27] LABS: Hemoglobin A1C 4.2 % (<5.7)
[2025-04-24 15:53] LABS: MRSA (PCR) NOT DETECTED (NOT DETECTE)
== END 2025-04-24 11:41 | disposition home or self-care (01) ==
PROVIDERS: Anesthesiology; PCP Family Medicine; Visit Provider Orthopaedic Surgery
DX: M17.11 Unilateral primary osteoarthritis, right knee (principal); I10 Essential (primary) hypertension; Z01.818 Encounter for other preprocedural examination
CPT/HCPCS: 36415; 80048; 80307; 82040; 83036; 85025; 87641

== ENCOUNTER 2025-05-20 02:22 | Day surgery (SDC) | payer BC, SELFPAY ==
--- NOTE | 2025-04-24 11:52 | PC.NURSE ---
[facility] has started construction of its new state of the art ER which will open Spring 2026. With this, we anticipate parking may be a challenge for some our surgical patients and families. Parking spaces are limited but are available for all Surgical, obstetrics, and ER patients sharing this lot. If you arrive and find you are having a hard time finding a parking space, please note that we understand the challenges, please drive around the hospital and park near Hospital Entrance 1. When you enter this entrance, you can ask a volunteer to direct or take you back to the surgical waiting area to check in. We appreciate everyone?s understanding of these expected challenges while we build for your future. Report to the Outpatient Waiting Room, entrance under the green pavilion located off [address], at time 10 am on date __05/20/25 . Planned Procedure Time: _1200 noon .? Time changes happen often and if your time is changed the preop area will call you the afternoon before. - You and your visitor will be asked to self-screen and do not enter if you have any COVID symptoms. Please call surgeon if you need to reschedule. - A mask is optional within the hospital at this time. Patients may have clear liquids (water, carbonated beverages, clear teas, apple juice) until 3 hours prior to surgery( 9am) with a maximum of 20 ounces. - No food from midnight until time of surgery and no smoking, or chewing tobacco (or any form of nicotine). No chewing gum, candy or mints. - Take only the following medications with a SIP of water on the morning of surgery: __bupropion, DO NOT STOP ANY OF YOUR OTHER PRESCRIPTION MEDICATIONS PRIOR TO SURGERY EXCEPT THE FOLLOWING Hold all vitamins and supplements for 3 days per anesthesiologist.LAST DOSE 05/16/25 Medications to discontinue per physician __HOLD MELOXICAM 7 DAYS PRE OP PER DR GONZALEZ LAST DOSE 05/12/25_. HOLD WEGOVY 10 DAYS PRE OP PER ANESTHESIA LAST DOSE 05/09/24 Please no make-up, nail greenlandic, hairspray, perfume, deodorant, or body powder the day of surgery.? No jewelry (including any body piercings) or valuables the day of surgery, leave them at home.? Please take a shower or bath the night before, or the morning of, surgery with an antibacterial soap.? Wear comfortable, loose fitting clothing.? Children are encouraged to wear pajamas. - Jewelry must be removed prior to entering the operating room.? Rings and piercings that are not removed may be cut off. - The hospital will not accept responsibility for valuables.? - Please leave all valuables, including medications, at home the day of surgery. If you are going home after surgery, a licensed combine driver must drive you home.? - NO public transportation without another adult if you receive anesthesia. - We recommend that an adult stay with you for 24 hours following discharge. - We also recommend that you do not drive, make important decision, drink alcoholic beverages, or take any drugs that were not prescribed by your health care provider for at least 24 hours after your discharge time. Follow any additional instructions given to you from your surgeon. verbal and written instructions given to __PATIENT__AND and asked if any additional questions and then verbalized understanding. Patient advised to call surgeon office or pre surgery nurse liaison [phone] if any additional questions.
[2025-04-24 12:49] VITALS: BP 138/89; PULSE 59; RESP 18; TEMP 37.3; O2SAT 99; BMI 32.1
[2025-05-20] VITALS (18 sets, daily range): BP systolic 109–150; BP diastolic 60–95; PULSE 55–92; RESP 12–20; TEMP 35.6–36.7; O2SAT 91–100
--- NOTE | ~2025-05-20 | XR_ITS ---
EXAMINATION: [id number] DATE: 05/21/2025 7:28 TRANSFUSION AIDE INDICATION: Right knee arthroplasty TECHNIQUE: 2 views right knee FINDINGS: There is a right total knee arthroplasty in expected position. Subcutaneous gas with fluid and air in the joint are consistent with recent surgery. No evidence of periprosthetic fracture. IMPRESSION: 1. Recent right total knee arthroplasty. Reviewed, dictated and finalized at location B. SFUSION AIDE
--- OUTSIDE RECORDS SUMMARY | 2025-05-20 02:24 | XMS_ITS | Clinical Summary ---
Author Organization [facility] Address [address] [place] [address] Care Team Providers Care Laundry Or Dry Cleaners Counter Clerk Name Role Phone Unavailable Primary Care [...]
[2025-05-20] MEDS: ACETAMINOPHEN 500 MG TABLET 1000 MG PO (11:10)
[2025-05-20] MEDS: TRANEXAMIC ACID 1,000MG/ISO100 1,000 MG/100 ML BAG 200 MG IVPB (11:10)
[2025-05-20] MEDS: LACTATED RINGERS 1,000 ML 30 ML IV CONT ×2 (11:10→15:12)
--- NOTE | 2025-05-20 11:51 | WPDHPUPDATE1 ---
History and Physical Update Update Date/Time: 05/20/25 11:51 History and Physical has been reviewed, including an updated exam of the patient. There are NO changes in the patient's condition. Risks, benefits, and alternatives have been discussed and questions answered. Patient agrees to proceed with procedure.
--- NOTE | 2025-05-20 12:04 | WPDANESEPPF ---
Anes - Initial Pre Proc Eval Procedure: Operation Date: 05/20/25 12:00 Proposed Procedures p Right Total Knee Arthroplasty - Ned Watson MD Date/Time: 05/20/25 12:04 Surgeon: Ned Watson MD Pre Op Diagnosis: primary oa right knee Patient Data Age: 59 Gender: M Height: 1.83 m Weight: 106 kg Last Vital Signs Temp 97.8 F 05/20/25 11:10 Pulse 55 L 05/20/25 11:10 Resp 16 05/20/25 11:10 BP 150/95 H 05/20/25 11:10 Pulse Ox 100 05/20/25 11:10 O2 Del Method Room Air 05/20/25 11:10 Allergies Allergy/AdvReac Type Severity Reaction Status Date / Time Penicillins Allergy Unknown Unknown Verified 05/20/25 11:24 Home Medications ?Medication ?Instructions ?Recorded ?Confirmed ?Type CPAP Pressure Change #1 ea 08/30/23 04/24/25 Rx cetirizine 10 mg capsule (Zyrtec) 10 mg PO DAILY PRN Allergy Symptoms 01/25/24 04/24/25 History [id number] oil-omega 3-vit E 1 cap PO DAILY 05/04/24 05/20/25 History 50 mg-550 mg-300 mg-30 unit capsule multivitamin (Daily Multi-Vitamin 1 tablet PO DAILY 05/04/24 05/20/25 History tablet) triamcinolone acetonide 0.1 % applic topical PRN 08/03/24 04/24/25 History topical cream omeprazole 20 mg capsule,delayed 20 mg PO .daily #30 caps 09/24/24 04/24/25 Rx release meloxicam 15 mg tablet 15 mg PO DAILY #90 tabs 10/31/24 05/20/25 Rx spironolactone 50 mg tablet 50 mg PO BID #60 tabs 12/11/24 05/20/25 Rx bupropion HCl 300 mg 24 hr tablet, 300 mg PO QAM #90 tabs 12/20/24 05/20/25 Rx extended release (Wellbutrin XL) lisinopril 20 1 tablet PO DAILY #90 tabs 01/28/25 05/20/25 Rx mg-hydrochlorothiazide 12.5 mg tablet tadalafil 5 mg tablet (Cialis) 5 mg PO DAILY PRN sexual activity 01/30/25 04/24/25 Rx #30 tabs ketoconazole 2 % topical cream 1 applic topical PRN PRN rash 02/01/25 04/24/25 History semaglutide (weight loss) 0.25 0.25 mg (0.5 mL) subcut WEEKLY #6 02/08/25 05/20/25 Rx mg/0.5 mL subcutaneous pen mL injector (Wegovy) lactobacillus combination no.4 3 3,000 mmu cells PO DAILY 03/08/25 05/20/25 History billion cell capsule (Probiotic) dupilumab 200 mg/1.14 mL 300 mg subcut ONCE 04/24/25 04/24/25 History subcutaneous pen injector (Dupixent) Held on 05/20/25. Instructions: Resume on 06/03/25. Hold for 2 weeks after surgery. mupirocin 2 % topical ointment 1 applic topical PRN 04/24/25 04/24/25 History aspirin 81 mg tablet,delayed 81 mg PO BID 14 days #28 tabs 05/20/25 Rx release meloxicam 15 mg tablet 15 mg PO DAILY #30 tabs 05/20/25 Rx oxycodone-acetaminophen 5 mg-325 1 - 2 tablet PO Q4-6H PRN pain 7 05/20/25 Rx mg tablet days #30 tabs prednisone 5 mg tablet 5 mg PO DAILY 3 weeks #21 tabs 05/20/25 Rx Laboratory Tests 05/20/25 10:45 Blood Type O Positive Antibody Screen Negative Patient hx anesthesia problems: none Family hx anesthesia problems: none Results Review: All pre-operative results and documents have been reviewed as part of the pre-operative evaluation. FOR[facility]LY [facility] Past Medical History Medical History Gas bloat syndrome Basal cell carcinoma (BCC) JOSE (obstructive sleep apnea) Psoriasiform dermatitis Essential (primary) hypertension Surgical History Surgical History H/O vasectomy H/O arthroscopy of right knee Family History Family History Father Hypertension Family history of elevated blood lipids Malignant neoplasm of prostate Mother Hypertension Family history of elevated blood lipids Grandparent Carcinoma of colon Social History Social History Smoking status: Never smoker Smokeless tobacco user: chewing tobacco Additional smoking assessment comments: hx of chewing tobacco (not currently) Alcohol intake: current Drinks per week: 3 Alcohol use details: on occasion Substance use: never Substance use type: does not use Do You Feel Safe in your Home?: Yes Lack of Transportation: No Lack of Food: Never True Current Housing: I Have Housing Concerned About Future Housing: No Difficulty Paying Gas/Electric Bills: No Difficulty Paying for Meds: No Currently Unemployed: No Education: Bachelor's Degree Difficulty w/ Childcare or Family Care: No Living arrangements: with family Spiritual care concerns: No Anes - Eval Final PreProcedure Day of Procedure 05/20/25 12:04 Patient weight: obese Heart: regular rate and rhythm Lungs: clear to auscultation Airway: Mallampati scale class II Neurological: alert and oriented Last oral intake: >/= 8 hours ASA classification: III Emergent: no Anesthetic plan: proceed Anesthesia type and monitoring: general LMA and standard monitoring Results Review: All pre-operative results and documents have been reviewed as part of the pre-operative evaluation. Informed Consent: The patient's anesthetic plan and its attendant risks and benefits were discussed with the patient/family/POA. Questions were solicited and answers provided to the satisfaction of the patient/family/POA.
[2025-05-20] MEDS: ceFAZolin 2 GM in SODIUM CHLORIDE 0.9% IV 50 ML 100 ML IVPB ×2 (12:44→20:01)
[2025-05-20] MEDS: SODIUM CHLORIDE 0.9% IV 37.7 ML, MORPHINE SULFATE INJ (*CRX) 2 MG, ROPivacaine HCL 1% 2... INFILTRATE (12:47)
[2025-05-20] MEDS: TRANEXAMIC ACID 1,000 MG/10 ML AMPUL 1000 MG IV PUSH (14:52)
[2025-05-20] MEDS: fentaNYL CITRATE INJ (*CRX) 100 MCG/2 ML VIAL 25 MCG IV PUSH ×10 (15:20→17:02)
[2025-05-20] MEDS: KETOROLAC 15 MG/ML VIAL (*BKC) IV PUSH (16:03)
[2025-05-20] MEDS: oxyCODONE HCL (*CRX) 5 MG TAB IR PO (16:36)
[2025-05-20] MEDS: ONDANSETRON INJ 4 MG/2 ML VIAL IV PUSH (17:00)
[2025-05-20] MEDS: SENNA/DOCUSATE SODIUM TABLET 2 TAB PO (17:36)
[2025-05-20] MEDS: SPIRONOLACTONE 50 MG TABLET PO (17:37)
[2025-05-20] MEDS: ACETAMINOPHEN 325 MG TABLET 650 MG PO ×2 (17:37→22:55)
[2025-05-20] MEDS: MELOXICAM 7.5 MG TABLET PO (17:37)
--- NOTE | 2025-05-20 17:56 | ADMGEN ---
This patient, Yamil Lopez, was admitted to 3 [facility] Surg Room 325-01. Patient/family oriented to hospital policies and general routines including ID bracelet, bed and alarms, visiting hours, pain management, procedures, bathroom and other care routines, personal items, smoking policy, room service/diet, and visiting hours. Information on how to activate the Rapid Response Team has been discussed. Patient/Family are encouraged to report perceived risks to care and to ask questions if they do not understand what they are told or what they should do. This nurse got report from Swetha in PACU
--- NOTE | 2025-05-20 18:55 | P.OP_ITS ---
Procedure Note - Detailed Date of Procedure 05/20/25 Pre-op Diagnosis Right knee degenerative arthritis. Post-op Diagnosis Same Procedure Performed Calipered, kinematically aligned total knee replacement right knee. Surgeon Ned Watson MD Upholsterer Outside Carly Mauricio PA-C Anesthesia General Findings According to the calipered kinematic alignment principles, the knee was balanced by the following verification checks incorporating 6 caliper measurements, using an insert goniometer to select the insert thickness, and adjusting the tibial resection following the kinematic alignment algorithm (see figure 160.10 published in [employer] [facility] chapter on kinematic alignment total knee arthroplasty.) The steps verified the femoral and tibial components were kinematically aligned coincident to the patient's pre arthritic joint lines, which closely restored the belkofski tibial compartment forces and ligament laxities without ligament release. The [employer] knee, designed specifically for kinematic alignment, fit optimally. Extensive disease with significant stiffness. Calcifications in the medial collateral ligament and chronic ACL deficiency. The knee was quite stiff. Slight medial collateral ligament release required. Bone quality was excellent. The record of verification checks were documented and scanned into the chart. Distal Femoral Resection: Distal Medial 5.5 mm(cartilage worn), Distal Lateral 6.5 mm Posterior Femoral Resection: Posterior Medial 7 mm, Posterior Lateral 7 mm. Description of Procedure General anesthesia was administered. A well-padded tourniquet was placed high on the thigh. The limb was prepped and draped in the usual sterile fashion. The limb was exsanguinated and the tourniquet inflated to 300 mmHgduring exposure and cementation. A longitudinal incision was created over the midline of the knee. Sharp dissection was taken through subcutaneous tissues. Electrocautery was used for hemostasis. A trivector approach to the knee joint was performed. The ACL, anterior horns of the menisci, and fat pad were excised, and a subperiosteal dissection was carried along the posterior medial border of the tibia. Starting midway between the top of the notch in the anterior femoral cortex, I drilled a 9 mm diameter hole parallel to the anterior cortex to minimize flexion of the femoral component and promote patella tracking. I verified the existence of a 5-10 mm bone bridge between the posterior aspect of the hole and the anterior limit of the intercondylar notch. An intraosseous positioning joshua was inserted 10 cm into the femur perpendicular to the distal joint line and parallel to the anterior cortex. I used a distal femoral referencing guide that compensated 2 mm when the cartilage was worn on the distal medial femoral condyle, and 2 mm when the cartilage was worn on the distal lateral femoral condyle. The basis for setting the distal and posterior femoral resection guide is knowing that the varus and valgus grade II to IV Kellegren-Darrius osteoarthritic knees have negligible bone wear at 0? and 90? and that the mean full-thickness cartilage wear approximates 2 mm. I measured the thickness of distal femoral resections with a caliper to +/- 0.5 mm. The thickness of each resection was adjusted to match the thickness of the respective condyle of the femoral component within 0.5 mm of target after compensating for cartilage wear and kerf. When the distal resection was 1-2 mm too thin, a recut guide was used to adjust the cut. When the distal resection was too thick, a 1 or 2 mm thick washer was fixed to the back of the 4-in-1 chamfer block to katlyn a corrective gap between the femoral component and distal femur. I set posterior femoral referencing guide at 0? orientation to position the pin holes for the 4 in 1 chamfer block. The charlie wing measured the width of the distal femoral resection and selected the size of the 4 in 1 chamfer block and femoral component. The AP sizer confirmed the size. I measured the thickness of the posterior femoral resections with a caliper before making the anterior and chamfer cuts. I adjusted the thicknesses of each resection to match the thickness of the respective condyle of the femoral component within +/-0.5 mm after compensating for cartilage wear and curve. When a posterior resection femoral resection was 1-2 mm too thick or thin a corrective correction was made by shifting or rotating the 4 in 1 chamfer block as needed. The chamfer block was secured in the correct position with compression screws. The anterior and chamfer femoral resections were made. These caliper measurements and corrections verified that the femoral component was set coincident with the patient's pre-arthritic distal and posterior femoral joint lines. I removed all the medial and lateral femoral and tibial osteophytes to restore the pre arthritic length of the medial and lateral collateral ligaments. I benjamin AP lines along the major axis of the lateral tibial plateau in between the tibial spines which identified the flexion extension plane of the knee. A conventional extramedullary tibial resection guide was applied to the ankle. An charlie wing was placed medially in the saw slot. The varus valgus angle of the tibial resection guide was adjusted until the guide paralleled the proximal tibial articular surface after compensating for cartilage and bone wear. The slope of flexion extension angle of the tibial resection guide was adjusted until the charlie wing paralleled the slope of the medial tibia after compensating for wear. The AP axis of the tibial resection guide was adjusted parallel to the two lines. The proximal tibia was resected, partially releasing the insertion of the posterior cruciate ligament. The thickness of the medial and lateral lateral tibial condyle was measured at the base of the tibial spines. I visually verified the slope of the medial border of the resection was parallel to the patient's pre arthritic slope after compensating for cartilage and bone wear. I removed the remnants of the posterior horns of the menisci and posterior osteophytes and cauterized the inferior lateral genicular vessels. The Aquamantys bipolar device was also used to for additional hemostasis. When the knee had a preoperative flexion contracture of 20? or more I teased the capsule off the posterior femur with a curved 3 quarter-inch osteotome. I administered the posterior femoral periosteal injection by delivering 10 cc using a 20 gauge spinal needle at the most medial and 10 cc at the most lateral femoral spur surface which reduced the risk of injury to the posterior neurovascular structures. I followed 6 options in a decision tree to fine tune the varus valgus and posterior slope orientation of the tibial component to restore the patient's pre arthritic tibial joint line and limb alignment. First, I adjusted the varus- valgus orientation of the proximal tibia resection working in 1 degree to 2 degree increments until there was negligible medial and lateral lift off of the distal femoral and proximal tibial resection from the spacer block during a varus valgus laxity assessment in extension. I selected the largest anatomic shape trial tibial base plate that fit within the cortical boundary of the proximal tibial resection. The base plate was best fit parallel to the cortical boundary which set the Internal-external orientation of the anterior to posterior and medial to lateral positions. The best fit method set the AP axis of the tibial base plate and insert parallel to the flexion extension plane of the pre arthritic knee. I pinned the trial tibial base plate, prepared the cruciate slot, and fixed the base plate to the tibia with the cruciate stem. I inserted the trial femoral component. The knee was placed in full extension. Varus valgus laxity is of the knee with trial components were assessed. When asymmetric laxity was observed a 1-2 degree varus or valgus recut guide was used to fine tune the tibial resection un til the laxity was 1 degree or less in full extension like the belkofski knee. The following steps determined the optimal insert thickness within +/-1 mm. First I inserted an insert goniometer that matched the thickness of the spacer block. I reduced the patella and then with the knee in maximum extension, I verified the knee hyperextended a few degrees and had negligible varus valgus laxity, like the pre arthritic knee. Next, I measured the external tibial orientation which was the angle the insert goniometer intersected the sagittal line on the medial condyle of the femoral trial component. Then with the knee in 15-30 degrees flexion I verified a 3-4 mm gap in the lateral compartment and no gap in the medial compartment during a 2nd varus valgus laxity test. Next, I placed the knee in 90? of flexion and the foot resting on the operating table and measured the internal tibial orientation. I repeated the steps until I identified the insert thickness that provided the highest external tibia orientation in extension and the highest internal tibial orientation at 90? flexion without anterior lift-off of the insert from the tibial base plate. The insert with this thickness was implanted. I applied a posterior drawer test with the tibia distracted by gravity and verified no posterior subluxation of the tibia relative to the femur. The thickness of the belkofski patella was measured with a caliper. The patella was resected using the oscillating saw. The best fitting anatomic patella button was selected. The fixation holes were drilled. When the patella and patella buttons combined thickness was thicker than the belkofski patella, the patella was recut. The patella remained centered on the trochlea and tracked well throughout the entire arc of flexion and extension. I used pulse lavage to clean the bony surfaces of debris and dried bone. I cemented the tibial, femoral, and patellar components using 1 bag of methylmethacrylate with Gentamycin, then rechecked the stability at full extension, 15-30 degrees, and 90? flexion and verified episcopalian of the entire arc of motion of the knee. The circulating nurse confirmed the sponge and needle counts were correct. I used pulse lavage to rinse the joint and wound. The extensor mechanism was closed with interrupted #1 Vicryl suture and #1 running Stratafix suture. The subcutaneous layer was closed with interrupted #1 Vicryl suture followed by 2-0 Stratafix and 3-0 Stratafix. Steri-Strips placed on the skin. Silver impregnated occlusive dressing applied to the wound. A light gauze wrap and Prince bandage were placed. The patient was transferred to the recovery room in stable condition. There were no complications. Implants Medacta GMK spheriKA Femoral component SpheriKA size 6, tibial component size 5, vitamin-E flex insert, thickness 10mm, Anatomic patella implant size 3. Estimated Blood Loss 200 Drains No Pathology None sent Complications No immediate complications Condition Stable Disposition PACU [facility] Billing Surgery - Charge Forward: Surgery Billing
[2025-05-20] MEDS: ASPIRIN 81 MG ENTERIC TABLET PO (20:01)
[2025-05-20] MEDS: FAMOTIDINE 20 MG TABLET PO (20:02)
[2025-05-20] MEDS: CYCLOBENZAPRINE HCL 5 MG TABLET PO (20:02)
[2025-05-21 02:49] VITALS: BP 102/45; PULSE 67; RESP 20; TEMP 36.9; O2SAT 96
[2025-05-21] MEDS: oxyCODONE/ACETAMINOPHEN (*CRX) 5-325 MG TABLET 1 TABLET PO ×3 (03:13→11:53)
[2025-05-21] MEDS: ceFAZolin 2 GM in SODIUM CHLORIDE 0.9% IV 50 ML 100 ML IVPB (04:41)
[2025-05-21] MEDS: ACETAMINOPHEN 325 MG TABLET 650 MG PO (05:23)
[2025-05-21 06:20] LABS: Hematocrit 28.1 % (42.0-52.0); Hemoglobin 9.2 g/dL (14.0-18.0); Immature Granulocyte Percent A 0.6 % (0-0.5); Lymphocytes Absolute Auto 1.02 K/mm3 (0.9-3.2); Mean Corpuscular HGB Conc 32.7 g/dl (32-36); Mean Corpuscular Hemoglobin 32.3 pg (26-34); Mean Corpuscular Volume 98.6 fl (80-100); Nucleated Red Blood Cells Absolute Auto 0.000 K/mm3 (0.0-0.012); Nucleated Red Blood Cells Perc 0.0 % (0.0-0.2); Platelet Count Result 230 k/mm3 (150-375); Red Blood Count 2.85 M/mm3 (4.6-6.20); White Blood Count 13.7 K/mm3 (4.5-10.0)
[2025-05-21 06:38] LABS: Anion Gap 6 mmol/L (4-12); Blood Urea Nitrogen 16 mg/dL (9-20); Calcium 8.2 mg/dL (8.4-10.2); Carbon Dioxide 23 mmol/L (22-30); Chloride 102 mmol/L (98-107); Estimated CRCL calculation 87 ml/min; Estimated Glomerular Filt Rate > 60; Glucose 115 mg/dL (65-110); Potassium 4.0 mmol/L (3.4-5.0); Sodium 131 mmol/L (137-145)
[2025-05-21 06:49] VITALS: BP 109/53; PULSE 66; RESP 16; TEMP 36.8; O2SAT 97
[2025-05-21] MEDS: MELOXICAM 7.5 MG TABLET PO (08:15)
[2025-05-21] MEDS: SPIRONOLACTONE 50 MG TABLET PO (08:15)
[2025-05-21] MEDS: buPROPion HCL XL (24 HR) 150 MG TABCR 300 MG PO (08:15)
[2025-05-21] MEDS: SENNA/DOCUSATE SODIUM TABLET 2 TAB PO (08:15)
[2025-05-21] MEDS: ASPIRIN 81 MG ENTERIC TABLET PO (08:15)
[2025-05-21] MEDS: FAMOTIDINE 20 MG TABLET PO (08:17)
[2025-05-21] MEDS: traMADol HCL (*CRX) 50 MG TABLET PO (09:58)
[2025-05-21] MEDS: CYCLOBENZAPRINE HCL 5 MG TABLET PO (09:58)
--- NOTE | 2025-05-21 11:18 | P.PNOP_ITS ---
Progress Note: A&P Assessment and Plan (1) Status post total right knee replacement: Code(s): Z96.651 - Presence of right artificial knee joint Status: Acute Assessment and Plan: Postop day 1: Left total knee arthroplasty. Patient tolerated procedure well. No complications. Pain manageable with pain medication. No numbness or tingling. We had a lengthy discussion regarding postoperative wound care, limitations, expectations, and exercises. Patient shows good understanding. He has had initial physical therapy and is tolerating it well. Subjective Subjective Date/Time Seen: 05/21/25 11:18 Interval history: Patient resting comfortably. No distal numbness or tingling. No other complaints. Review of Systems Review of Systems: All systems reviewed & are unremarkable except as noted in HPI and below Exam Narrative: 59-year-old male. Resting comfortably in chair. Alert and oriented x3. No acute distress. Wearing compression socks bilaterally. Dressing dry and intact without drainage. Mild swelling. Mild ecchymosis. No erythema. No hematoma. Range of motion limited due to pain. 5-90. Calf nontender. Neurologic status intact. No varicosities. Distal pulses palpable. Quad fires. Objective Data Vital Signs Vital Signs: Vital Signs - 24 hr 05/20/25 15:12 05/20/25 15:20 05/20/25 15:30 Temperature 98.0 F Pulse Rate 92 92 78 Respiratory Rate 19 16 12 Blood Pressure 124/84 138/90 138/74 Pulse Oximetry 97 99 99 Oxygen Delivery Simple Face Mask Simple Face Mask Simple Face Mask Oxygen Flow Rate 8 8 8 05/20/25 15:39 05/20/25 15:43 05/20/25 15:45 Temperature Pulse Rate 70 Respiratory Rate 12 Blood Pressure 143/77 H Pulse Oximetry 98 95 98 Oxygen Delivery Room Air Nasal Cannula Nasal Cannula Oxygen Flow Rate 2 3 05/20/25 16:00 05/20/25 16:15 05/20/25 16:30 Temperature 97.0 F L Pulse Rate 71 70 55 L Respiratory Rate 13 13 13 Blood Pressure 139/82 132/76 124/73 Pulse Oximetry 96 96 94 Oxygen Delivery Nasal Cannula Nasal Cannula Nasal Cannula Oxygen Flow Rate 2 2 2 05/20/25 16:42 05/20/25 17:00 05/20/25 17:30 Temperature 96.1 F L Pulse Rate 66 57 L 73 Respiratory Rate 13 12 Blood Pressure 142/76 H 142/82 H 146/80 H Pulse Oximetry 96 96 91 Oxygen Delivery Nasal Cannula Nasal Cannula Oxygen Flow Rate 2 1 05/20/25 17:55 05/20/25 18:12 05/20/25 18:25 Temperature 96.1 F L 96.0 F L Pulse Rate 87 60 Respiratory Rate 20 20 Blood Pressure 114/89 131/74 Pulse Oximetry 95 95 91 Oxygen Delivery Room Air Oxygen Flow Rate 05/20/25 19:55 05/20/25 20:00 05/20/25 22:49 Temperature 96.9 F L 98.1 F Pulse Rate 55 L 67 Respiratory Rate 18 18 Blood Pressure 117/67 109/60 Pulse Oximetry 100 97 Oxygen Delivery CPAP Oxygen Flow Rate 05/20/25 23:30 05/21/25 02:49 05/21/25 06:49 Temperature 98.4 F 98.3 F Pulse Rate 67 66 Respiratory Rate 20 16 Blood Pressure 102/45 L 109/53 L Pulse Oximetry 96 97 Oxygen Delivery CPAP Oxygen Flow Rate 05/21/25 07:45 05/21/25 09:02 Temperature Pulse Rate Respiratory Rate Blood Pressure Pulse Oximetry Oxygen Delivery Room Air Room Air Oxygen Flow Rate Intake/Output Intake/Output: Intake & Output 05/18/25 05/19/25 05/20/25 05/21/25 23:59 23:59 23:59 23:59 Intake Total 300 730 Balance 300 730 Meds/Results Medications: Active Medications Generic Name Dose Route Start Last Admin Trade Name Freq PRN Reason Stop Dose Admin Acetaminophen 650 mg 05/20/25 17:10 05/21/25 05:23 Acetaminophen 325 Mg Tablet PO 650 mg Q6HR WHITLEY Administration Aspirin 81 mg 05/20/25 21:00 05/21/25 08:15 Aspirin 81 Mg Enteric Tablet PO 81 mg Q12HR WHITLEY Administration Bupropion HCl 300 mg 05/21/25 09:00 05/21/25 08:15 Bupropion Hcl Xl (24 Hr) 150 Mg Tabcr PO 300 mg QAM WHITLEY Administration Cyclobenzaprine HCl 5 mg 05/20/25 17:04 05/21/25 09:58 Cyclobenzaprine Hcl 5 Mg Tablet PO 5 mg Q8H PRN Administration Spasms Diphenhydramine HCl 25 mg 05/20/25 17:04 Diphenhydramine Hcl Inj 50 Mg/Ml Vial IV PUSH Q6H PRN Itching Famotidine 20 mg 05/20/25 21:00 05/21/25 08:17 Famotidine 20 Mg Tablet PO 20 mg Q12HR WHITLEY Administration Hydrochlorothiazide 12.5 mg 05/21/25 09:00 05/21/25 08:15 Hydrochlorothiazide 12.5 Mg Capsule PO 12.5 mg QAM WHITLEY Administration Hydromorphone HCl 1 mg 05/20/25 17:04 Hydromorphone Hcl Inj (*Crx) 1 Mg/Ml Syr IV PUSH Q2H PRN Breakthrough Pain Rated 7-10 or NPO Hydromorphone HCl 0.5 mg 05/20/25 17:04 Hydromorphone Hcl Inj (*Crx) 1 Mg/Ml Syr IV PUSH Q2H PRN Breakthrough Pain Rated 4-6 or NPO Cefazolin Sodium 2 gm/ Sodium 50 mls @ 100 mls/hr 05/20/25 21:00 05/21/25 04:41 Chloride IVPB 05/21/25 13:29 100 mls/hr Q8H [facility] Administration Lisinopril 20 mg 05/21/25 09:00 05/21/25 08:17 Lisinopril 20 Mg Tablet PO 20 mg QAM [facility] Administration Meloxicam 7.5 mg 05/20/25 17:04 05/21/25 08:15 Meloxicam 7.5 Mg Tablet PO 7.5 mg BID WHITLEY Administration Naloxone HCl 0.1 mg 05/20/25 17:04 Naloxone Hcl 0.4 Mg/Ml Vial IV PUSH Q2M PRN Opiate Reversal Ondansetron HCl 4 mg 05/20/25 17:04 05/20/25 17:00 Ondansetron Inj 4 Mg/2 Ml Vial IV PUSH 4 mg Q4H PRN Administration Nausea And Vomiting Oxycodone/Acetaminophen 1 tablet 05/20/25 17:04 05/21/25 07:26 Oxycodone/Acetaminophen (*Crx) 5-325 Mg Tablet PO 1 tablet Q4H PRN Administration Pain Rated 4-6 Oxycodone/Acetaminophen 1 tab 05/20/25 17:04 Oxycodone/Acetaminophen (*Crx) 10-325 Mg Tablet PO Q6H PRN Pain Rated 7-10 Polyethylene Glycol 17 gm 05/21/25 09:00 05/21/25 08:17 Polyethylene Glycol 3350 17 Gm Powd.Pack PO 17 gm QAM WHITLEY Administration Prednisone 5 mg 05/20/25 17:04 05/20/25 17:37 Prednisone 5 Mg Tablet PO 5 mg DAILY@1700 WHITLEY Administration Senna/Docusate Sodium 2 tab 05/20/25 17:04 05/21/25 08:15 Senna/Docusate Sodium Tablet PO 2 tab BID WHITLEY Administration Spironolactone 50 mg 05/20/25 17:04 05/21/25 08:15 Spironolactone 50 Mg Tablet PO 50 mg BID WHITLEY Administration Tramadol HCl 50 mg 05/20/25 17:04 05/21/25 09:58 Tramadol Hcl (*Crx) 50 Mg Tablet PO 50 mg Q4H PRN Administration Pain Rated 1-3 Radiology Results: ITS Impressions Knee X-Ray 05/20/25 15:30 IMPRESSION: 1. Recent right total knee arthroplasty. Labs Labs: Laboratory Results - last 24 hr 05/20/25 05/21/25 10:45 05:36 WBC 13.7 H RBC 2.85 L Hgb 9.2 L Hct 28.1 L MCV 98.6 MCH 32.3 MCHC 32.7 RDW 11.9 Plt Count 230 MPV 10.0 Immature Gran % (Auto) 0.6 H Neut % (Auto) 83.1 H Lymph % (Auto) 7.5 L [place] % (Auto) 8.3 Eos % (Auto) 0.1 Baso % (Auto) 0.4 Lymph # (Auto) 1.02 [place] # (Auto) 1.1 H Eos # (Auto) 0.0 Baso # (Auto) 0.1 Abs Immat Gran (auto) 0.08 H Absolute Neuts (auto) 11.4 H Absolute Nucleated RBC 0.000 Nucleated RBC % 0.0 Sodium 131 L Potassium 4.0 Chloride 102 Carbon Dioxide 23 Anion Gap 6 BUN 16 Creatinine 1.03 Estim Creat Clear Calc 87 Estimated GFR > 60 Glucose 115 H Calcium 8.2 L Blood Type O Positive Antibody Screen Negative
== END 2025-05-21 12:00 | disposition home or self-care (01) ==
LOC: ANHSURGERY 10:31 → ANH3MEDSUR 17:15
PROVIDERS: Physician Assistant Surgical; PCP Family Medicine; Visit Provider Orthopaedic Surgery
PROC: (CPT 27447; principal; 2025-05-20 12:00)
DX: M17.11 Unilateral primary osteoarthritis, right knee (principal); Z87.891 Personal history of nicotine dependence; E66.9 Obesity, unspecified; Z68.31 Body mass index [BMI] 31.0-31.9, adult
CPT/HCPCS: 27447; 36415; 73560; 80048; 85025; 86850; 86900; 86901; 97110; 97161; 97165; C1776; J0690; A9270; C1713; J0166; J0360; J1100; J1171; J1885; J2003; J2250; J2270; J2405; J2704; J2795; J3010; J3290; J7120; J7512